=== PATIENT | female | born 1945 | race Caucasian/White ===

== ENCOUNTER 2024-01-31 23:30 | Inpatient (IN) | payer MEDICARE, OTHER ==
[~2024-01-31] VITALS: Ht 170.2 cm; Wt 85.0 kg
[2024-02-01] MEDS ORDERED: ISOS120T7 PO (01:14)
[2024-02-01] MEDS ORDERED: ELIQ5TAB PO (01:14)
[2024-02-01] MEDS ORDERED: ATOR40TA75 PO (01:14)
[2024-02-01] MEDS ORDERED: ASPI81TA26 PO (01:14)
[2024-02-01] MEDS ORDERED: AMLO1TAB24 PO (01:14)
[2024-02-01] MEDS ORDERED: CARV25TA PO (01:40)
[2024-02-01 02:52] LABS: BASO # 0.1 10^3/uL (0.0-0.2); BASO % 0.4 % (0.0-1.0); EOS # 0.2 10^3/uL (0.0-0.5); EOS % 1.2 % (0.0-3.0); HEMATOCRIT 47.2 % (36.0-47.0); HEMOGLOBIN 16.1 g/dl (12.0-15.5); LYMPH # 0.8 10^3/uL (1.5-5.0); LYMPH % 6.3 % (24.0-44.0); MEAN CORPUSCULAR HEMOGLOBIN 33.5 pg (27.0-33.0); MEAN CORPUSCULAR HGB CONC 34.1 g/dl (32.0-36.5); MEAN CORPUSCULAR VOLUME 98.1 fl (80.0-96.0); MONO # 0.7 10^3/uL (0.0-0.8); MONO % 5.4 % (2.0-8.0); NEUTROPHILS # 10.6 10^3/uL (1.5-8.5); NEUTROPHILS % 86.3 % (36.0-66.0); PLATELET COUNT, AUTOMATED 186 10^3/uL (150-450); RED BLOOD COUNT 4.81 10^6/uL (4.00-5.40); WHITE BLOOD COUNT 12.3 10^3/uL (4.0-10.0)
[2024-02-01 03:24] LABS: ALBUMIN 3.8 G/DL (3.2-5.2); ALKALINE PHOSPHATASE 97 U/L (46-116); ALT/SGPT 16 U/L (7.0-40); AST/SGOT 14 U/L (<34); BILIRUBIN,TOTAL 0.9 MG/DL (0.3-1.2); BLOOD UREA NITROGEN 22 MG/DL (9-23); CALCIUM LEVEL 9.5 MG/DL (8.3-10.6); CARBON DIOXIDE LEVEL 27 MMOL/L (20-31); CHLORIDE LEVEL 108 MMOL/L (98-107); CREATININE FOR GFR 0.82 MG/DL (0.55-1.30); GLOMERULAR FILTRATION RATE > 60.0 (>32); GLUCOSE, FASTING 87 MG/DL (74-106); POTASSIUM SERUM 3.8 MMOL/L (3.5-5.1); SODIUM LEVEL 139 MMOL/L (136-145); TOTAL PROTEIN 7.9 G/DL (5.7-8.2)
[2024-02-01] MEDS: ACETAMINOPHEN *IV* 1,000 MG in IV 1 EA IV ONE (05:21)
[2024-02-01] MEDS ORDERED: VANCOMYCIN HCL 1,000 MG, VIAL MATE ADAPTER 1 EACH in D5W 250 ML IV SCH (05:30)
[2024-02-01 05:33] LABS: ERYTHROCYTE SEDIMENTATION RATE 45 mm/hr (0-30)
[2024-02-01 05:39] LABS: INR 1.15; PARTIAL THROMBOPLASTIN TIME 28.5 SECONDS (24.8-34.2); PROTHROMBIN TIME 14.3 SECONDS (12.5-14.5)
[2024-02-01] MEDS ORDERED: VANCOMYCIN HCL 1,000 MG, VIAL MATE ADAPTER 1 EACH in D5W 250 ML IV ONE (07:00)
[2024-02-01] MEDS: PIPERACILLIN/TAZOBACTAM SOD 3.375 GM in D5W MINI-BAG PLUS 50 ML IV ONE (07:46)
[2024-02-01] MEDS ORDERED: VANCOMYCIN HCL 750 MG, VIAL MATE ADAPTER 1 EACH in D5W 250 ML IV ONE (08:00)
[2024-02-01] MEDS ORDERED: ATOR80TA59 PO (09:24)
[2024-02-01] MEDS ORDERED: NITR4TASL SL (09:28)
[2024-02-01] MEDS ORDERED: OXYC1TAB23 PO (09:28)
[2024-02-01] MEDS ORDERED: XALA0.007 OU (09:28)
[2024-02-01] MEDS ORDERED: HOME MED LIST COMPLETE! XX SCH (09:35)
[2024-02-01] MEDS: CEFTAROLINE FOSAMIL 600 MG in D5W MINI-BAG PLUS 50 ML IV SCH (10:12)
[2024-02-01 10:50] VITALS: BP 166/78; TEMP 99; O2SAT 97
[2024-02-01] MEDS: APIXABAN 5 MG TAB (ELIQUIS) PO SCH (11:25)
[2024-02-01] MEDS: KETOROLAC 30 MG/ML 1ML VIAL IV PRN (12:21)
[2024-02-01] MEDS: ASPIRIN 81MG ENTERIC TABLET PO SCH (13:15)
[2024-02-01] MEDS: ISOSORBIDE MON. (IMDUR) 60MG XR TAB PO SCH (13:16)
[2024-02-01] MEDS: CARVedilol 12.5 MG TAB PO SCH (13:16)
[2024-02-01] MEDS: PERCOCET 5MG/325MG TAB PO PRN (19:57)
[2024-02-01 20:24] VITALS: BP 148/75; TEMP 102; O2SAT 96
[2024-02-01 20:25] VITALS: TEMP 101.2
[2024-02-01] MEDS: LATANOPROST 0.005% OPHTH SOLN 2.5 ML OU SCH (21:01)
[2024-02-01] MEDS: ATORVASTATIN 20 MG TAB PO SCH (21:02)
[2024-02-01] MEDS: SENOKOT S TAB PO SCH (21:02)
[2024-02-01] MEDS: ACETAMINOPHEN TAB 650MG DOSE (2X325MG) PO PRN (21:05)
[2024-02-01 22:43] VITALS: TEMP 97.9
[2024-02-02 04:35] VITALS: BP 162/81; TEMP 100.4; TEMP 99.4; O2SAT 90
[2024-02-02 06:16] LABS: MEAN CORPUSCULAR HEMOGLOBIN 32.7 pg (27.0-33.0); MEAN CORPUSCULAR HGB CONC 33.4 g/dl (32.0-36.5); PLATELET COUNT, AUTOMATED 141 10^3/uL (150-450); RED BLOOD COUNT 3.91 10^6/uL (4.00-5.40); WHITE BLOOD COUNT 11.1 10^3/uL (4.0-10.0)
[2024-02-02 06:26] LABS: HEMATOCRIT 38.3 % (36.0-47.0); HEMOGLOBIN 12.8 g/dl (12.0-15.5)
[2024-02-02 06:37] LABS: BLOOD UREA NITROGEN 24 MG/DL (9-23); CALCIUM LEVEL 8.5 MG/DL (8.3-10.6); CARBON DIOXIDE LEVEL 27 MMOL/L (20-31); CHLORIDE LEVEL 111 MMOL/L (98-107); CREATININE FOR GFR 0.87 MG/DL (0.55-1.30); GLOMERULAR FILTRATION RATE > 60.0 (>32); GLUCOSE, FASTING 100 MG/DL (74-106); POTASSIUM SERUM 3.4 MMOL/L (3.5-5.1); SODIUM LEVEL 141 MMOL/L (136-145)
[2024-02-02 07:27] LABS: ANISOCYTOSIS 1+; ATYPICAL LYMPH 5 % (0-5); BASOPHILS 1 % (0-1); EOSINOPHILS 2 % (0-3); LYMPHOCYTES 3 % (16-44); MONOCYTES 4 % (0-5); NEUTROPHILS 84 % (28-66); PLATELET ESTIMATE NORMAL (NORMAL)
[2024-02-02 07:28] LABS: POLYCHROMASIA 1+
[2024-02-02] MEDS: POTASSIUM CHLORIDE 10MEQ SR TABLET PO ONE (09:04)
[2024-02-02 12:00] VITALS: BP 148/75; TEMP 100.3; O2SAT 91
[2024-02-02 20:41] VITALS: BP 143/70; TEMP 99.9; O2SAT 93
[2024-02-02 21:29] VITALS: BP 143/70
[2024-02-03 04:22] VITALS: BP 185/97; TEMP 99.6; O2SAT 92
[2024-02-03 06:32] VITALS: BP 159/79
[2024-02-03 06:35] VITALS: TEMP 97.9
[2024-02-03 06:42] LABS: BASO # 0.1 10^3/uL (0.0-0.2); BASO % 0.5 % (0.0-1.0); EOS # 0.3 10^3/uL (0.0-0.5); HEMATOCRIT 38.5 % (36.0-47.0); HEMOGLOBIN 12.8 g/dl (12.0-15.5); LYMPH # 0.8 10^3/uL (1.5-5.0); LYMPH % 8.4 % (24.0-44.0); MEAN CORPUSCULAR HEMOGLOBIN 32.7 pg (27.0-33.0); MEAN CORPUSCULAR HGB CONC 33.2 g/dl (32.0-36.5); MEAN CORPUSCULAR VOLUME 98.2 fl (80.0-96.0); MONO % 9.6 % (2.0-8.0); NEUTROPHILS # 7.8 10^3/uL (1.5-8.5); NEUTROPHILS % 78.1 % (36.0-66.0); PLATELET COUNT, AUTOMATED 137 10^3/uL (150-450); RED BLOOD COUNT 3.92 10^6/uL (4.00-5.40)
[2024-02-03 06:58] LABS: BLOOD UREA NITROGEN 15 MG/DL (9-23); CALCIUM LEVEL 8.6 MG/DL (8.3-10.6); CARBON DIOXIDE LEVEL 27 MMOL/L (20-31); CHLORIDE LEVEL 110 MMOL/L (98-107); CREATININE FOR GFR 0.74 MG/DL (0.55-1.30); GLOMERULAR FILTRATION RATE > 60.0 (>32); GLUCOSE, FASTING 107 MG/DL (74-106); POTASSIUM SERUM 3.9 MMOL/L (3.5-5.1); SODIUM LEVEL 141 MMOL/L (136-145)
[2024-02-03] MEDS ORDERED: DOXY100C3 PO (09:25)
[2024-02-03] MEDS ORDERED: PROBCAP14 PO (09:25)
[2024-02-03] MEDS ORDERED: LASI20TA3 PO (09:25)
[2024-02-03] MEDS ORDERED: CEFD1CAP9 PO (09:25)
[2024-02-03] MEDS ORDERED: POTA10CA70 PO (09:30)
[2024-02-05] MEDS ORDERED: OXYC1TAB23 PO (09:36)
== END 2024-02-03 10:45 | disposition home or self-care (01) | DRG 872 ==
LOC: M ED 23:30 → M ED INP 02-01 07:04 → M MS5PR 02-01 10:50
PROVIDERS: ADMIT Internal Medicine Nephrology; ATTEND Internal Medicine Nephrology
DX: A41.9 Sepsis, unspecified organism (principal); L03.116 Cellulitis of left lower limb; L97.919 Non-pressure chronic ulcer of unspecified part of right lower leg with unspecified severity; L97.929 Non-pressure chronic ulcer of unspecified part of left lower leg with unspecified severity; I48.0 Paroxysmal atrial fibrillation; I10 Essential (primary) hypertension; E78.5 Hyperlipidemia, unspecified; G89.29 Other chronic pain; I89.0 Lymphedema, not elsewhere classified; K21.9 Gastro-esophageal reflux disease without esophagitis; N39.46 Mixed incontinence; L30.9 Dermatitis, unspecified; E87.6 Hypokalemia; I87.2 Venous insufficiency (chronic) (peripheral); M54.9 Dorsalgia, unspecified; F41.9 Anxiety disorder, unspecified; F17.200 Nicotine dependence, unspecified, uncomplicated; F32.A Depression, unspecified; Z90.79 Acquired absence of other genital organ(s); Z79.01 Long term (current) use of anticoagulants; Z79.82 Long term (current) use of aspirin; Z79.899 Other long term (current) drug therapy; Z79.891 Long term (current) use of opiate analgesic; Z88.2 Allergy status to sulfonamides; Z91.040 Latex allergy status